=== PATIENT | male | born 1955 | race Caucasian/White ===

== ENCOUNTER → 2019-08-18 | Outpatient (CLI) | payer MEDICARE, OTHER | LOC: CARD 07:42 | DX: R07.9 Chest pain, unspecified (principal); R41.0 Disorientation, unspecified; R53.83 Other fatigue; R42 Dizziness and giddiness | CPT/HCPCS: 93225; 93226 ==

== ENCOUNTER → 2019-09-07 | Outpatient (CLI) | payer MEDICARE, OTHER ==
[~2019-09-07] MED LIST: ACET-2267 PO; ASPI-999 PO; DULO60CA59 PO; LISI-552 PO; METO50TA7 PO; PANT20TA3 PO; PRAV40TA2 PO
== END ==
LOC: LAB 09:40
PROVIDERS: ATTEND Nurse Practitioner Family
DX: Z01.812 Encounter for preprocedural laboratory examination (principal); I10 Essential (primary) hypertension; R06.02 Shortness of breath; R07.89 Other chest pain
CPT/HCPCS: 36415; 80053; 80061; 84443; 85027; 85610; 85730; 87081

== ENCOUNTER 2019-09-10 06:12 | Day surgery (SDC) | payer MEDICARE, OTHER ==
[2019-09-07 09:55] VITALS: BP 180/102
[2019-09-07 10:06] LABS: HEMOGLOBIN 15.6 G/DL (13.3-17.7); MEAN PLATELET VOLUME 10.8 FL (7.4-10.4); RED CELL DISTRIBUTION WIDTH 13.3 % (10.0-14.5)
[2019-09-07 10:22] LABS: PROTHROMBIN TIME PATIENT 13.4 SEC (12.2-14.7)
[2019-09-07 10:28] LABS: ALANINE AMINOTRANSFERASE 17 U/L (0-55); ALBUMIN 4.7 GM/DL (3.2-4.5); ALKALINE PHOSPHATASE 95 U/L (40-136); BILIRUBIN,TOTAL 0.6 MG/DL (0.1-1.0); BUN/CREATININE RATIO 13; CALCIUM 9.6 MG/DL (8.5-10.1); CARBON DIOXIDE 26 MMOL/L (21-32); CHLORIDE 102 MMOL/L (98-107); CHOLESTEROL 195 MG/DL (< 200); CREATININE SERUM 1.02 MG/DL (0.60-1.30); GFR ESTIMATED > 60; GLUCOSE 108 MG/DL (70-105); HDL CHOLESTEROL 38 MG/DL (40-60); POTASSIUM 4.1 MMOL/L (3.6-5.0); SODIUM 140 MMOL/L (135-145); TOTAL PROTEIN 7.7 GM/DL (6.4-8.2); TRIGLYCERIDES 189 MG/DL (<150); VLDL CHOLESTEROL 38 MG/DL (5-40)
--- NOTE | 2019-09-07 10:28 | NUR ---
SPOKE WITH PT (HE HAD BOTTLES) TO COMPLETE THE MED REC. PT WAS ABLE TO TELL ME HOW/WHEN HE TAKES EACH MED. THE FOLLOWING ARE FILL DATES ACCORDING TO [place]: 08-06-2019 LISINOPRIL #30/30DS 08-11-2019 DULOXETINE #30/30DS 08-26-2019 PANTOPRAZOLE #60/30DS 09-02-2019 METOPROLOL #90/90DS 09-02-2019 ASPIRIN #30/30DS OTC MEDS: TYLENOL
[2019-09-10] VITALS (10 sets, daily range): BP systolic 137–174; BP diastolic 85–118
[~2019-09-10] VITALS: Ht 182 cm; Wt 79.3 kg
[~2019-09-10 06:12] MED LIST changes: +FLU QUADRIvalent (5+ YOA) 2019-2020 (AFLURIA) 0.5 ML IM ONE; +HEParin 1000 UNIT/ML (10ML VIAL) FOR BOLUS ONE; +LIDOCAINE 1% INJ 20 ML 20 ML VIAL ONE; +METO-370 PO; -METO50TA7 PO; +NS IV 1000 ML 1,000 ML IV SCH; +NS IV 1000 ML 3,000 ML ONE; -PRAV40TA2 PO
[2019-09-10] MEDS ORDERED: NS IV 1000 ML 3,000 ML ONE (06:15)
[2019-09-10] MEDS ORDERED: LIDOCAINE 1% INJ 20 ML 20 ML VIAL ONE (06:15)
[2019-09-10] MEDS ORDERED: HEParin 1000 UNIT/ML (10ML VIAL) FOR BOLUS ONE (06:15)
[2019-09-10] MEDS ORDERED: NS IV 1000 ML 1,000 ML IV SCH ×2 (06:30→08:32)
[2019-09-10] MEDS ORDERED: MIDAZOLAM 5 MG/5 ML (VERSED) VIAL ONE (07:39)
[2019-09-10] MEDS ORDERED: fentaNYL INJECTION 100 MCG/2 ML AMP ONE (07:39)
--- NOTE | 2019-09-10 07:42 | Cardiac Procedure Note-CS/ASA ---
Pre-Procedure Note Pre-Op Procedure Note H&P Reviewed The H&P was reviewed, patient examined and no changes noted. Date H&P Reviewed: Sep 10, 2019 Time H&P Reviewed: 07:42 Conscious Sedation Pre-Proced Time 07:42 ASA Score 3 For ASA 3 and 4: Consider anesthesia and medical clearance. Also, for patients with a history of failed moderate sedation consider anesthesia. Airway Lungs Heart ASA score ASA 1: a normal healthy patient ASA 2: a patient with a mild systemic disease (mid diabetes, controlled hypertension, obesity ASA 3: a patient with a severe systemic disease that limits activity (angina, COPD, prior Myocardial infarction) ASA 4: a patient with an incapacitating disease that is a constant threat to life (CHF, renal failure) ASA 5: a moribund patient not expected to survive 24 hrs. (ruptured aneurysm) ASA 6: a declared brain- patient whose organs are being harvested. For emergent operations, add the letter E after the classification Mallampati Classification Grade 2 Sedation Plan Analgesia, Amnesia, Plan communicated to team members, Discussed options with patient/fam, Discussed risks with patient/fam The patient is an appropriate candidate to undergo the planned procedure, sedation, and anesthesia. The patient immediately re-assessed prior to indication. KATARZYNA SMITH MD FACP FAC CCDS Sep 10, 2019 07:42
[2019-09-10] MEDS ORDERED: PRAV40TA2 PO (08:35)
--- NOTE | 2019-09-10 08:36 | Discharge Inst-Cardiology ---
Discharge Inst-Cardiac Discharge Medications New Medications: Pravastatin Sodium (Pravastatin Sodium) 40 Mg Tablet 40 MG PO HS for 30 Days, #30 TAB 5 Refills Continued Medications: Acetaminophen (Tylenol Extra Strength) 500 Mg Tablet 1000 MG PO Q8H PRN for PAIN-MILD (1-4), TAB Aspirin (Aspirin) 81 Mg Tab.chew 81 MG PO HS, TAB Duloxetine HCl (Duloxetine HCl) 60 Mg Capsule.dr 60 MG PO HS, CAP Lisinopril (Lisinopril) 20 Mg Tablet 20 MG PO HS, TAB Metoprolol Succinate (Metoprolol Succinate) 50 Mg Tab.er.24h 50 MG PO HS, TAB Pantoprazole Sodium (Pantoprazole Sodium) 20 Mg Tablet.dr 40 MG PO HS, TAB TAKES 2 (20MG) TABS TO EQUAL 40MG KATARZYNA SMITH MD FACP FAC CCDS Sep 10, 2019 08:36
--- NOTE | 2019-09-10 08:37 | Discharge Inst-Post CATH ---
Discharge Inst-CATH/EP Post Cardiac Cath/EP D/C Inst Follow Up/Plan F/u with Dr Cannon in one month ACTIVITY * Go Home directly and rest. * Limit activity of the leg (or wrist if it was used) for 7 days including aerobics, swimming, jogging, bicycling, etc. * Restrict stair-climbing for 7 days if possible, if not, climb up with your non-cath leg, then bring together on the same step. * Avoid lifting, pushing, pulling or excessive movement of the affected e xtremity for 7 days. * Customary sexual activity may be resumed after 2 days-use caution not to use a position that strains or causes pain to the affected extremity. * No driving for 24 hours. * NO SMOKING. * Avoid straining for bowel movements for 7 days. * Gentle walking on level ground is allowed. * Returning to work will depend on the type of procedure and the results. Your doctor will discuss this with you. CALL YOUR DOCTOR FOR ANY OF THE FOLLOWING: *If bleeding from the puncture site occurs- Apply gentle pressure to site with clean cloth and call your doctor or EMS. * If a knot or lump forms under the skin, increases in size, or causes pain. * If bruising appears to be worsening or moving further down your leg instead of disappearing. * Temperature above 101 F. CARE OF YOUR GROIN INCISION; * Bruising or purple discoloration of the skin near the puncture site is common. * You may shower only, no bathtub bathing for 5 days. Be careful to avoid slipping as your leg may feel stiff. * If a closure device was used on your femoral artery, please see the attached guide regarding care of the device and your leg. * Leave dressing on FOR 24 hours. CARE OF YOUR WRIST INCISION; * Bruising or purple discoloration of the skin near the puncture site is common. * You may shower. * DO NOT submerge wrist. * Leave dressing on FOR 24 hours. KATARZYNA CANNON MD [facility]S Sep 10, 2019 08:37
[2019-09-10] MEDS ORDERED: PATIENT MAY USE OWN MEDS, ALL PO SCH (08:45)
--- NOTE | 2019-09-10 11:25 | CARDIAC CATHETERIZATION ---
DATE OF SERVICE: The patient is a 64-year-old man who has multiple coronary artery disease risk factors who has been experiencing chest discomfort and some symptoms are suggestive of angina. Cardiac catheterization was carried out today after having obtained an informed consent. DESCRIPTION OF PROCEDURE: He was brought to the cardiac catheterization laboratory in a fasting state. Right groin was prepared and draped in the usual sterile fashion. Lidocaine 1% for local anesthesia. Modified Seldinger technique was used to advance a 5-Afghan sheath in the right femoral artery, 5-Afghan JL4 catheter for left coronary angiography, 5-Afghan JR4 catheter for right coronary angiography, 5-Afghan pigtail catheter was used for left heart catheterization and left ventricular angiography. At the end of the procedure, manual pressure was used to achieve hemostasis following sheath removal. He tolerated the procedure well. HEMODYNAMICS: Left ventricular end-diastolic pressure following coronary angiography was 13 mmHg. There is no significant pressure gradient on pullback across the aortic valve. Ascending aortic pressure was 142/75 with a mean of 104 mmHg. CORONARY ANGIOGRAPHY: Left main coronary artery, left circumflex artery, right coronary artery all have diffuse mild plaque without any significant obstructive disease. Right coronary artery is dominant. LEFT VENTRICULAR ANGIOGRAPHY: Left ventricular angiography was carried out in the right anterior oblique projection. Global left ventricular systolic function, normal regional wall motion abnormalities seen on this view. Left ventricular ejection fraction approximately 60%. CONCLUSIONS: 1. Diffuse mild coronary plaque involving all coronary vessels. No significant obstructive disease. 2. Normal global left ventricular systolic function with ejection fraction approximately 60%. 3. Left ventricular end-diastolic pressure at the upper end of normal. DISCUSSION AND RECOMMENDATIONS: Based on results of the study, it appears appropriate to continue a conservative approach. Aspirin and a beta-thuan therapy is being continued. Statin therapy will be added as tolerated. Job ID: [id number] DocumentID: [id number] Dictated Date: 09/10/2019 08:30:12 [employer] Consultant Date: 09/10/2019 11:24:31 Dictated By: KATARZYNA SMITH MD, MA, FACP, FACC,
== END 2019-09-10 12:05 | disposition home or self-care (01) ==
LOC: CATH 06:12 → SDC 08:52 → CATH 12:05
PROVIDERS: ATTEND Internal Medicine Cardiovascular Disease
DX: I25.10 Atherosclerotic heart disease of native coronary artery without angina pectoris (principal); I10 Essential (primary) hypertension; Z87.891 Personal history of nicotine dependence; Z79.899 Other long term (current) drug therapy; Z11.2 Encounter for screening for other bacterial diseases
CPT/HCPCS: 36415; 80053; 80061; 84443; 85027; 85610; 85730; 87081; 93458

== ENCOUNTER → 2019-09-20 | Outpatient (CLI) | payer MEDICARE, OTHER ==
[~2019-09-20] MED LIST changes: -FLU QUADRIvalent (5+ YOA) 2019-2020 (AFLURIA) 0.5 ML IM ONE; -HEParin 1000 UNIT/ML (10ML VIAL) FOR BOLUS ONE; -LIDOCAINE 1% INJ 20 ML 20 ML VIAL ONE; -NS IV 1000 ML 1,000 ML IV SCH; -NS IV 1000 ML 3,000 ML ONE; +PRAV40TA2 PO
== END ==
LOC: CARD 12:39
PROVIDERS: ATTEND Internal Medicine Cardiovascular Disease
DX: I10 Essential (primary) hypertension (principal); R07.89 Other chest pain
CPT/HCPCS: 93306

== ENCOUNTER → 2020-04-28 | Outpatient (CLI) | payer MEDICARE, OTHER ==
[~2020-04-28] MED LIST changes: -METO-370 PO; +METO50TA7 PO
--- NOTE | 2020-04-28 10:58 | Diagnostic Imaging Report ---
INDICATION: Hepatitis C. PROCEDURE: Ultrasound abdomen complete. TECHNIQUE: Multiple real-time grayscale images were obtained of the abdomen in various projections. FINDINGS: The liver is normal in size at 16 cm. There is an area of increased echogenicity adjacent to the gallbladder within the right lobe of the liver measuring approximately 12 mm x 17 mm x 14 mm. Gallbladder is without stones or sludge. No wall thickening or pericholecystic fluid is seen. There is no biliary ductal dilatation. Pancreas is unremarkable. Spleen is normal in size at 10.1 cm. Aorta is nonaneurysmal. IVC is patent. The right and left kidneys are without calculi or hydronephrosis. There is no ascites. IMPRESSION: 1. A circumscribed echogenic focus adjacent to the gallbladder in the right lobe of the liver. While this may represent an area of focal fatty infiltration, other etiologies such as a liver mass, hemangioma cannot be excluded. Dedicated CT utilizing hemangioma protocol would be useful for further evaluation. 2. No evidence of cholelithiasis or acute cholecystitis. Dictated by: Dictated on workstation # [id number]
== END ==
LOC: RAD 06:39
PROVIDERS: ATTEND Internal Medicine Rheumatology
DX: Z11.1 Encounter for screening for respiratory tuberculosis (principal); D18.09 Hemangioma of other sites; B19.20 Unspecified viral hepatitis C without hepatic coma; M06.9 Rheumatoid arthritis, unspecified; M32.9 Systemic lupus erythematosus, unspecified; M81.0 Age-related osteoporosis without current pathological fracture; M19.90 Unspecified osteoarthritis, unspecified site; L40.50 Arthropathic psoriasis, unspecified
CPT/HCPCS: 36415; 76700; 87522

== ENCOUNTER → 2020-05-31 | Outpatient (CLI) | payer MEDICARE, OTHER ==
[~2020-05-31] MED LIST changes: +IOHEXOL 350 MG/ML 100 ML (OMNIPAQUE 350) VIAL IV ONE
[2020-05-31 09:13] LABS: BUN/CREATININE RATIO 12; CALCIUM 9.4 MG/DL (8.5-10.1); CARBON DIOXIDE 29 MMOL/L (21-32); CHLORIDE 103 MMOL/L (98-107); CREATININE SERUM 0.92 MG/DL (0.60-1.30); GFR ESTIMATED > 60; GLUCOSE 106 MG/DL (70-105); POTASSIUM 4.6 MMOL/L (3.6-5.0); SODIUM 140 MMOL/L (135-145)
== END ==
LOC: RAD 08:33
PROVIDERS: ATTEND Internal Medicine Rheumatology
DX: Z01.812 Encounter for preprocedural laboratory examination (principal); R93.5 Abnormal findings on diagnostic imaging of other abdominal regions, including retroperitoneum
CPT/HCPCS: 36415; 74160; 80048